=== PATIENT | female | born 1975 | race Caucasian/White ===

== ENCOUNTER → 2016-04-16 | Outpatient (CLI) | payer OTHER ==
[2015-08-20 20:24] VITALS: BP 141/77
[~2016-04-16] MED LIST: AMOX875T PO; CIPR7.5D AS
--- NOTE | 2016-04-16 13:42 | RAD ---
DATE: 04/16/2016 EXAM: Bilateral diagnostic mammogram to include a left breast ultrasound 04/16/2016 HISTORY: Left breast lump and pain. COMPARISON: None. This study was interpreted with the benefit of Computerized Aided Detection (CAD). FINDINGS: Digital MLO and CC mammograms of both breasts were obtained. This is the patient's baseline study. The breast parenchyma is heterogeneously dense which can obscure a lesion on mammography (breast density code C). Multiple rounded masslike densities are seen within the upper outer quadrant of the left breast. These appear to correspond to the patient's palpable abnormalities. Further evaluation with left breast ultrasound is recommended. No spiculated mass is seen involving either breast. No malignant appearing calcification or area of architectural distortion is noted. A real-time ultrasound examination of the upper outer quadrant of the left breast was performed. Multiple images were obtained. Multiple rounded well-defined anechoic structures are seen scattered throughout the upper quadrant of the left breast. These are consistent with simple cysts. They measure 1 cm to 1.8 cm in size. No solid mass is seen. The simple cysts correspond to the patient's mammographic findings. IMPRESSION: Multiple simple cysts are seen within the upper outer quadrant of the left breast. These correspond to the patient's palpable and mammographic findings. I would recharacterize the patient's mammograms BI-RADS Category 2 benign findings with a recommendation for routine yearly screening mammography for follow-up. BI-RADS CATEGORY: 2 BENIGN FINDING(S) RECOMMENDED FOLLOW-UP: 12M 12 MONTH FOLLOW-UP PQRS compliance statement: Patient information was entered into a reminder system with a target due date 04/16/2017 for the next mammogram. Mammography is a sensitive method for finding small breast cancers, but it does not detect them all and is not a substitute for careful clinical examination. A negative mammogram does not negate a clinically suspicious finding and should not result in delay in biopsying a clinically suspicious abnormality. "Our facility is accredited by the [employer] Mammography [employer]."
== END | disposition home or self-care (01) ==
LOC: KCIC MAMMO 12:13
PROVIDERS: ATTEND Family Medicine
DX: N63 Unspecified lump in breast (principal); N64.4 Mastodynia
CPT/HCPCS: 76641; G0204; 77066

== ENCOUNTER → 2017-08-27 | Outpatient (CLI) | payer OTHER | END | disposition home or self-care (01) | LOC: KCIC US 09:49 | DX: Z12.31 Encounter for screening mammogram for malignant neoplasm of breast (principal); N92.5 Other specified irregular menstruation; N88.8 Other specified noninflammatory disorders of cervix uteri | CPT/HCPCS: 76830; 76856; 77067 ==